=== PATIENT | female | born 1945 ===

== ENCOUNTER → 2020-04-07 10:34 | Outpatient (CLI) | payer OTHER ==
[~2020-04-07 10:34] MED LIST: ACTONEL30 MG PO; ARAVA10 MG PO; CEFADROXIL500 MG PO; GABAPENTIN800 MG PO; HYZAAR 100-251 UDTAB PO; MEDROL4 MG PO; MILLIPRED DP5 M1 PO; NORVASC2.5 M1 PO; PERCOCET 5/3251 TAB PO; PLAQUENIL PO; SYNTHROID100 MCG PO; [UNRECOGNIZED DRUG - OTHER] PO
== END | disposition home or self-care (01) ==
LOC: LAB 10:34
PROVIDERS: ATTEND Internal Medicine Hematology & Oncology
DX: D50.8 Other iron deficiency anemias (principal); I10 Essential (primary) hypertension; D51.8 Other vitamin B12 deficiency anemias; D51.1 Vitamin B12 deficiency anemia due to selective vitamin B12 malabsorption with proteinuria; D51.0 Vitamin B12 deficiency anemia due to intrinsic factor deficiency; E03.8 Other specified hypothyroidism; M32.8 Other forms of systemic lupus erythematosus; M06.89 Other specified rheumatoid arthritis, multiple sites; K12.30 Oral mucositis (ulcerative), unspecified

== ENCOUNTER 2020-08-12 11:06 | Outpatient (CLI) | payer OTHER | END 2020-08-12 11:14 | disposition home or self-care (01) | LOC: LAB 11:06 | PROVIDERS: ATTEND Internal Medicine Hematology & Oncology | DX: D50.8 Other iron deficiency anemias (principal); I10 Essential (primary) hypertension; E03.8 Other specified hypothyroidism; D51.8 Other vitamin B12 deficiency anemias; D72.818 Other decreased white blood cell count; D69.6 Thrombocytopenia, unspecified; M32.8 Other forms of systemic lupus erythematosus; M06.89 Other specified rheumatoid arthritis, multiple sites; K12.30 Oral mucositis (ulcerative), unspecified ==

== ENCOUNTER → 2020-12-06 11:03 | Outpatient (CLI) | payer OTHER | END | disposition home or self-care (01) | LOC: LAB 11:03 | PROVIDERS: ATTEND Internal Medicine Hematology & Oncology | DX: D72.818 Other decreased white blood cell count (principal); R79.89 Other specified abnormal findings of blood chemistry; D50.8 Other iron deficiency anemias; K76.89 Other specified diseases of liver; R74.02 Elevation of levels of lactic acid dehydrogenase [LDH]; I10 Essential (primary) hypertension; D51.8 Other vitamin B12 deficiency anemias; E55.9 Vitamin D deficiency, unspecified; E03.8 Other specified hypothyroidism; C50.819 Malignant neoplasm of overlapping sites of unspecified female breast; R97.8 Other abnormal tumor markers; R97.0 Elevated carcinoembryonic antigen [CEA]; D69.49 Other primary thrombocytopenia; M32.8 Other forms of systemic lupus erythematosus; M06.89 Other specified rheumatoid arthritis, multiple sites; K12.30 Oral mucositis (ulcerative), unspecified; I70.244 Atherosclerosis of native arteries of left leg with ulceration of heel and midfoot ==

== ENCOUNTER 2021-03-15 11:10 | Outpatient (CLI) | payer OTHER | END 2021-03-15 11:12 | disposition home or self-care (01) | LOC: LAB 11:10 | PROVIDERS: ATTEND Internal Medicine Hematology & Oncology | DX: D50.8 Other iron deficiency anemias (principal); R79.89 Other specified abnormal findings of blood chemistry; I10 Essential (primary) hypertension; R74.02 Elevation of levels of lactic acid dehydrogenase [LDH]; K76.89 Other specified diseases of liver; D51.8 Other vitamin B12 deficiency anemias; E03.8 Other specified hypothyroidism; C50.919 Malignant neoplasm of unspecified site of unspecified female breast; R97.8 Other abnormal tumor markers; R97.0 Elevated carcinoembryonic antigen [CEA]; R70.0 Elevated erythrocyte sedimentation rate; D72.818 Other decreased white blood cell count; D69.6 Thrombocytopenia, unspecified; M32.8 Other forms of systemic lupus erythematosus; M06.89 Other specified rheumatoid arthritis, multiple sites; K12.30 Oral mucositis (ulcerative), unspecified; M32.19 Other organ or system involvement in systemic lupus erythematosus ==

== ENCOUNTER 2021-10-06 11:18 | Outpatient (CLI) | payer OTHER | END 2021-10-06 11:24 | disposition home or self-care (01) | LOC: LAB 11:18 | PROVIDERS: ATTEND Internal Medicine Hematology & Oncology | DX: D50.8 Other iron deficiency anemias (principal); R79.9 Abnormal finding of blood chemistry, unspecified; I10 Essential (primary) hypertension; R74.02 Elevation of levels of lactic acid dehydrogenase [LDH]; K76.89 Other specified diseases of liver; E03.8 Other specified hypothyroidism; C50.919 Malignant neoplasm of unspecified site of unspecified female breast; R97.8 Other abnormal tumor markers; R97.0 Elevated carcinoembryonic antigen [CEA]; R70.0 Elevated erythrocyte sedimentation rate; D72.818 Other decreased white blood cell count; D69.6 Thrombocytopenia, unspecified; M32.9 Systemic lupus erythematosus, unspecified; M06.89 Other specified rheumatoid arthritis, multiple sites; K12.30 Oral mucositis (ulcerative), unspecified ==

== ENCOUNTER 2022-09-08 05:35 | Inpatient (IN) | payer OTHER ==
[~2022-09-08] VITALS: Ht 165.1 cm; Wt 67.1 kg
[~2022-09-08 05:35] MED LIST changes: +HYZAAR 100-251 EACH PO; +JANTOVEN5 MG PO
== END 2022-09-10 14:05 | disposition home or self-care (01) | DRG 579 ==
LOC: CIR.AMB 05:35 → SURH 21:00
PROVIDERS: ADMIT Surgery; ATTEND Surgery
PROC: 0HBT0ZZ Excision of Right Breast, Open Approach (ICD-10-PCS; 2022-09-08)
PROC: 07B50ZZ Excision of Right Axillary Lymphatic, Open Approach (ICD-10-PCS; principal; 2022-09-08 17:00)
DX: D05.11 Intraductal carcinoma in situ of right breast (principal); D65 Disseminated intravascular coagulation [defibrination syndrome]; L76.02 Intraoperative hemorrhage and hematoma of skin and subcutaneous tissue complicating other procedure; Z20.822 Contact with and (suspected) exposure to COVID-19; Z79.01 Long term (current) use of anticoagulants

== ENCOUNTER 2024-07-03 20:47 | Emergency (ER) | payer OTHER ==
[~2024-07-03] VITALS: Ht 165.1 cm; Wt 69.4 kg
[2024-07-03] MEDS ORDERED: TRAMADOL HCL 50 MG TABLET PO ONE (21:15)
[2024-07-03] MEDS ORDERED: KETOROLAC TROMETHAMINE 30 MG VIAL IM ONE (23:00)
== END 2024-07-03 23:41 | disposition home or self-care (01) ==
LOC: ER 20:47
DX: S69.81XA Other specified injuries of right wrist, hand and finger(s), initial encounter (principal); W19.XXXA Unspecified fall, initial encounter; Y93.89 Activity, other specified; Y92.89 Other specified places as the place of occurrence of the external cause; Y99.8 Other external cause status; Z88.6 Allergy status to analgesic agent
CPT/HCPCS: 71045; 72040; 72170; 73110; 73130; 96372; 99283; J1885